=== PATIENT | male | born 1990 | race African-American/Black ===

== ENCOUNTER 2023-12-08 01:08 | Inpatient (IN) | payer MEDICAID ==
[~2023-12-08] VITALS: Ht 188 cm; Wt 84.9 kg
[~2023-12-08 01:08] MED LIST: NOCURR
[2023-12-08 03:02] LABS: EOSINOPHILS % (AUTO) 0.1 % (1.0-6.0); HEMATOCRIT 46.1 % (41-53); HEMOGLOBIN 15.3 g/dL (13.5-17.5); LYMPHOCYTES # (AUTO) 0.9 K/uL (1.0-4.8); LYMPHOCYTES % (AUTO) 22.4 % (22.0-44.0); MEAN CORPUSCULAR HEMOGLOBIN 30.5 pg (26.0-34.0); MEAN CORPUSCULAR HGB CONC 33.1 G/dL (31.0-37.0); MEAN CORPUSCULAR VOLUME 92 fL (80-100); MONOCYTES # (AUTO) 0.7 K/uL (0.1-1.0); MONOCYTES % (AUTO) 16.9 % (2.0-9.0); NEUTROPHILS # (AUTO) 2.4 K/uL (1.8-7.7); NEUTROPHILS % (AUTO) 59.6 % (40.0-70.0); PLATELET COUNT (AUTO) 223 K/uL (150-450); RED BLOOD CELL COUNT(AUTO) 5.01 MIL/uL (4.50-5.90); RED CELL DISTRIBUTION WIDTH 13.9 % (11.5-14.5); WHITE BLOOD COUNT (AUTO) 4.1 K/uL (4.5-11.0)
[2023-12-08 03:12] LABS: ANION GAP 4 mmol/L (8-16); CALCIUM, TOTAL 8.8 mg/dL (8.8-10.5); CARBON DIOXIDE 32 mmol/L (22-29); CHLORIDE 105 mmol/L (98-107); CREATININE 1.53 mg/dL (0.60-1.30); GLOMERULAR FILTR. RATE CALC > 60 mL/min (>60); GLUCOSE,RANDOM 81 mg/dL (70-110); POTASSIUM 3.9 mmol/L (3.5-5.1); SODIUM SERUM 141 mmol/L (136-145); UREA NITROGEN, BLOOD 17 mg/dL (7-18)
[2023-12-08 03:16] LABS: ALCOHOL, BLOOD (SERUM) < 3 mg/dL (0-10)
[2023-12-08 03:38] LABS: COVID AG,FIA SOURCE NASAL SWAB
[2023-12-08 04:06] LABS: SARS-COV2 (COVID) ANTIGEN,FIA Negative (Negative)
[2023-12-08] MEDS ORDERED: OLANZapine 5 MG RAPDIS TABLET PO PRN (09:15)
[2023-12-08] MEDS ORDERED: LORazepam 2 MG TABLET PO PRN (09:15)
[2023-12-08] MEDS ORDERED: ZOLPIDEM TARTRATE 10 MG TABLET PO PRN (09:15)
[2023-12-08 14:04] VITALS: BP 145/89; PULSE 95; RESP 19; TEMP 97.9; O2SAT 100
[2023-12-08] MEDS ORDERED: HydrOXYzine PAMOATE 50 MG CAPSULE PO PRN (17:15)
[2023-12-08] MEDS ORDERED: ACETAMINOPHEN 325 MG TABLET PO PRN (17:15)
[2023-12-08] MEDS ORDERED: MAGNESIUM HYDROXIDE SUSPENSION 30 ML UDCUP PO PRN (17:15)
[2023-12-08] MEDS ORDERED: LORazepam 1 MG TABLET PO PRN (17:15)
[2023-12-08] MEDS ORDERED: PROMETHAZINE HCL 25 MG TABLET PO PRN (17:15)
[2023-12-08] MEDS ORDERED: LOPERAMIDE HCL 2 MG CAPSULE PO PRN (17:15)
[2023-12-08] MEDS ORDERED: MAG HYDROX/ALUMINUM HYD/SIMETH ES 30 ML SUSPENSION UDCUP PO PRN (17:15)
[2023-12-08] MEDS ORDERED: TUBERCULIN, PURIFIED PROTEIN DERIVATIVE 5 TU/0.1 ML SYRINGE ID ONE (17:15)
[2023-12-08] MEDS ORDERED: GuaiFENesin/D-METHORPHAN [SUGAR-FREE] 200-20MG/10 ML SYRUP UDCUP PO PRN (17:15)
[2023-12-08] MEDS: MELATONIN 5 MG TABLET PO SCH (20:31)
[2023-12-08 20:52] VITALS: BP 135/94; PULSE 61; RESP 18; TEMP 98.1; O2SAT 98
[2023-12-09 08:36] VITALS: BP 131/100; PULSE 119; RESP 17; TEMP 97; O2SAT 94
[2023-12-09] MEDS: OXcarbazepine 300 MG TABLET PO SCH (08:49)
[2023-12-09] MEDS: NALTREXONE HCL 50 MG TABLET PO SCH (08:49)
[2023-12-09] MEDS: OMEGA-3/DHA/EPA/FISH OIL 1,000 MG CAPSULE PO SCH (08:49)
[2023-12-09] MEDS: MULTIVITAMINS WITH MINERALS, THERAPEUTIC TABLET PO SCH (08:49)
[2023-12-09] MEDS: FOLIC ACID 1 MG TABLET PO SCH (08:49)
[2023-12-09] MEDS: THIAMINE 100 MG TABLET PO SCH (08:50)
[2023-12-09] MEDS: BuPROPion HCL XL 150 MG ER TABLET PO SCH (08:50)
[2023-12-09] MEDS: LORazepam 2 MG TABLET PO ONE (15:59)
[2023-12-09] MEDS ORDERED: LORazepam 1 MG TABLET PO PRN (17:15)
[2023-12-09] MEDS: DIVALPROEX SODIUM 500 MG ER TABLET PO SCH (20:43)
[2023-12-09] MEDS: MIRTAZAPINE 15 MG TABLET PO SCH (20:43)
[2023-12-09] MEDS: OLANZapine 5 MG RAPDIS TABLET PO SCH (20:43)
[2023-12-09 20:47] VITALS: BP 103/60; PULSE 92; TEMP 98.4; O2SAT 100
[2023-12-10 08:25] VITALS: RESP 16
[2023-12-10] MEDS ORDERED: NALT50TA33 PO ×2 (11:20→13:03)
[2023-12-10] MEDS ORDERED: OLAN5TAB94 PO ×2 (11:20→13:04)
[2023-12-10] MEDS ORDERED: DIVA-153 PO ×2 (11:20→13:03)
[2023-12-10] MEDS ORDERED: MIRT-89 PO ×2 (11:20→13:01)
[2023-12-10] MEDS ORDERED: OXCA300T28 PO (11:20)
[2023-12-10] MEDS ORDERED: MELA5TAB40 PO ×2 (11:20→13:11)
[2023-12-10] MEDS ORDERED: OMEG-135 PO ×2 (11:20→13:10)
[2023-12-10] MEDS ORDERED: DOCO1CAP6 PO (13:05)
[2023-12-10] MEDS ORDERED: CARB-92 PO (13:08)
== END 2023-12-10 16:46 | disposition home or self-care (01) | DRG 750 ==
LOC: EMS 01:08 → B2S 09:47 → B3A 12-09 16:30
PROVIDERS: ADMIT Psychiatry & Neurology Psychiatry; ATTEND Psychiatry & Neurology Psychiatry
PROC: GZHZZZZ Group Psychotherapy (ICD-10-PCS; principal; 2023-12-08)
PROC: GZ51ZZZ Individual Psychotherapy, Behavioral (ICD-10-PCS; 2023-12-08)
PROC: GZ58ZZZ Individual Psychotherapy, Cognitive-Behavioral (ICD-10-PCS; 2023-12-08)
PROC: GZ56ZZZ Individual Psychotherapy, Supportive (ICD-10-PCS; 2023-12-09)
DX: F25.9 Schizoaffective disorder, unspecified (principal); R45.851 Suicidal ideations; Z91.148 Patient's other noncompliance with medication regimen for other reason; Z20.822 Contact with and (suspected) exposure to COVID-19; F17.210 Nicotine dependence, cigarettes, uncomplicated; F31.9 Bipolar disorder, unspecified
CPT/HCPCS: 80048; 85025; 99285; G0480; Z7502; Z7610